=== PATIENT | male | born 1995 | race African-American/Black ===

== ENCOUNTER 2020-11-26 08:34 | Day surgery (SDC) | payer OTHER ==
[2020-11-23 17:36] VITALS: BMI 21.7
[2020-11-26] MEDS ORDERED: MIDAZOLAM HCL 2 MG/2 ML SINGLE DOSE VIAL ONE ×2 (10:08→10:11)
[2020-11-26] MEDS ORDERED: ROPIVACAINE HCL 0.5% 30ML VIAL ONE (10:08)
[2020-11-26] MEDS ORDERED: BUPIVACAINE HCL/PF 0.25% (2.5MG/ML) 10 ML VIAL ONE (10:22)
[2020-11-26] MEDS ORDERED: BUPIVACAINE HCL 50 ML ONE (10:24)
[2020-11-26] MEDS ORDERED: PROPOFOL 20 ML ONE ×4 (10:53)
[2020-11-26] MEDS ORDERED: LIDOCAINE HCL/PF 2% SDV 5ML VIAL ONE (10:57)
[2020-11-26] MEDS ORDERED: EPHEDRINE SULFATE/0.9% NACL/PF 50 MG/10 ML SYRINGE NR ONE (11:00)
[2020-11-26] MEDS ORDERED: BUPIVACAINE HCL/PF 0.25% (2.5MG/ML) 10 ML VIAL IJ ONE (11:46)
[2020-11-26] MEDS ORDERED: PROMETHAZINE HCL 25 MG/1 ML VIAL IVPB PRN (12:06)
[2020-11-26] MEDS ORDERED: oxyCODONE HCL 5 MG TABLET PO PRN ×2 (12:06)
[2020-11-26] MEDS ORDERED: ONDANSETRON 4 MG/2 ML VIAL IVPUSH PRN (12:06)
[2020-11-26 16:25] VITALS: BP 120/68; PULSE 51; TEMP 98.1
== END 2020-11-26 16:15 | disposition home or self-care (01) ==
LOC: FASU 08:34
PROVIDERS: ATTEND Orthopaedic Surgery Sports Medicine
PROC: 0LQN0ZZ Repair Right Lower Leg Tendon, Open Approach (ICD-10-PCS; principal; 2020-11-26 11:03)
DX: S86.011A Strain of right Achilles tendon, initial encounter (principal); X58.XXXA Exposure to other specified factors, initial encounter; Y93.9 Activity, unspecified; Y92.9 Unspecified place or not applicable
CPT/HCPCS: 94760